=== PATIENT | female | born 1970 | race Caucasian/White ===

== ENCOUNTER 2019-10-23 14:21 | Emergency (ER) | payer BC ==
[2019-10-23 15:00] VITALS: BP 135/95; PULSE 68; TEMP 98.2; BMI 26.2
--- NOTE | 2019-10-23 15:02 | PDOC ---
History of Present Illness - General Chief Complaint: Pain Stated Complaint: RT LOWER GROIN PAIN X 2 MONTHS Time Seen by Provider: 10/23/19 14:40 History Source: Patient Exam Limitations: No Limitations - History of Present Illness Initial Comments: 49 yo F history lower abdominal pain for the past 2 months. She has an appointment with a GI in 1 month (delayed due to COVID pandemic), but states the pain was worse today and she could not wait. Denies N/V/D, constipation, fever, chills, dysuria. Pain is unrelenting, worse with walking. She has had a normal ultrasound in the past month, evaluated for the same pain. Past History - Medical History Allergies/Adverse Reactions: Allergies Allergy/AdvReac Type Severity Reaction Status Date / Time No Known Allergies Allergy Verified 10/23/19 14:22 Home Medications: Ambulatory Orders NK [No Known Home Medication] 10/23/19 Anemia: No Asthma: No Cancer: No Cardiac Disorders: No CVA: No COPD: No CHF: No Dementia: No Diabetes: No GI Disorders: No Disorders: No HTN: No Hypercholesterolemia: No Liver Disease: No Seizures: No Thyroid Disease: No - Surgical History Abdominal Surgery: No Appendectomy: No Cardiac Surgery: No Cholecystectomy: No Lung Surgery: No Neurologic Surgery: No Orthopedic Surgery: No - Psycho-Social/Smoking History Smoking History: Current every day smoker Have you smoked in the past 12 months: Yes Number of Cigarettes Smoked Daily: 2 Information on smoking cessation initiated: Yes - Substance Abuse Hx (Audit-C & DAST Scrn) How often the patient has a drink containing alcohol: Never Score: In Men: 4 or > Positive; In Women: 3 or > Positive: 0 Screen Result (Pos requires Nsg. Audit-10AR): Negative In the last yr the pt used illegal drug/Rx for NonMed reason: No Score: Yes response is considered Positive: 0 Screen Result (Positive result requires Nsg. DAST-10): Negative Review of Systems - Review of Systems Able to Perform ROS?: Yes Comments:: GENERAL/CONSTITUTIONAL: No fever or chills. No weakness. HEAD, EYES, EARS, NOSE AND THROAT: No change in vision. No ear pain or discharge. No sore throat. CARDIOVASCULAR: No chest pain or shortness of breath. RESPIRATORY: No cough, wheezing, or hemoptysis. GASTROINTESTINAL: No nausea, vomiting, diarrhea or constipation. +Abd pain GENITOURINARY: No dysuria, frequency, or change in urination. MUSCULOSKELETAL: No joint or muscle swelling or pain. No neck or back pain. SKIN: No rash. NEUROLOGIC: No headache, vertigo, loss of consciousness, or change in strength/sensation. ENDOCRINE: No increased thirst. No abnormal weight change. HEMATOLOGIC/LYMPHATIC: No anemia, easy bleeding, or history of blood clots. ALLERGIC/IMMUNOLOGIC: No hives or skin allergy. *Physical Exam - Vital Signs Last Vital Signs Temp Pulse Resp BP Pulse Ox 98.2 F 68 20 135/95 100 10/23/19 14:21 10/23/19 14:21 10/23/19 14:21 10/23/19 14:21 10/23/19 14:21 - Physical Exam GENERAL: Awake, alert, and fully oriented, in no acute distress HEAD: No signs of trauma EYES: PERRLA, EOMI, sclera anicteric, conjunctiva clear ENT: Auricles normal inspection, hearing grossly normal, nares patent, oropharynx clear without exudates. Moist mucosa NECK: Normal ROM, supple, no lymphadenopathy, JVD, or masses LUNGS: Breath sounds equal, clear to auscultation bilaterally. No wheezes, and no crackles HEART: Regular rate and rhythm, normal S1 and S2, no murmurs, rubs or gallops ABDOMEN: Soft, +moderate RLQ tenderness, normoactive bowel sounds. No guarding, no rebound. No masses EXTREMITIES: Normal range of motion, no edema. No clubbing or cyanosis. No cords, erythema, or tenderness NEUROLOGICAL: Cranial nerves II through XII grossly intact. Normal speech. +Slightly antalgic gait. Motor and sensation intact SKIN: Warm, dry, normal turgor, no rashes or lesions noted. Medical Decision Making - Medical Decision Making Appendicitis considered unlikely given the duration of symptoms, lack of fever, no change in appetite. Kidney stone possible, ruled out by CT in ED. She has already had ob/gyn eval. This may be something inflammatory given the findings of the CT. Infection considered unlikely, again, given duration of symptoms and lack of fever, chills, N/V/D. Will give her a list of GIs in our system in the hopes she can be seen earlier. Stable for DC home. Discharge - Discharge Information Problems reviewed: Yes Clinical Impression/Diagnosis: Abdominal pain Qualifiers: Abdominal location: right lower quadrant Qualified Code(s): R10.31 - Right lower quadrant pain Condition: Stable Disposition: HOME - Admission No - Follow up/Referral Referrals: Jasbir Falk MD [Staff Physician] - - Patient Discharge Instructions Patient Printed Discharge Instructions: DI for Abdominal Pain-Adult - Post Discharge Activity
== END 2019-10-23 17:39 | disposition home or self-care (01) ==
LOC: FER 14:21
DX: R10.9 Unspecified abdominal pain (principal)
CPT/HCPCS: 74176-TC; 81003; 84703; 99284-25

== ENCOUNTER 2019-11-27 11:42 | Day surgery (SDC) | payer BC ==
[2019-11-26 13:49] VITALS: BMI 26.9
[2019-11-27 12:09] VITALS: TEMP 98.2
[2019-11-27 15:43] VITALS: BP 114/72; PULSE 66
--- NOTE | 2019-12-01 17:05 | PATH ---
Surgical Pathology Report Patient Name: CLIFTON FERNANDEZ [facility]. Rec. #: [id number] /Age/Gender: 1970 (Age: 49) / F Account: [id number] Location: [facility] Taken: 11/27/2019 Received: 11/27/2019 Reported: 12/01/2019 Physicians: Lorraine Corea M.D. Specimen(s) Received A: BX RIGHT COLON B: BX TRANSVERSE COLON C: BX DESCENDING COLON Clinical History Rule out colitis Postoperative diagnosis: Hemorrhoids Final Diagnosis A. RIGHT COLON, BIOPSY: COLONIC MUCOSA SHOWING SMALL BENIGN/REACTIVE LYMPHOID AGGREGATE. B. TRANSVERSE COLON, BIOPSY: COLONIC MUCOSA SHOWING SMALL BENIGN/REACTIVE LYMPHOID AGGREGATE. C. DESCENDING COLON, BIOPSY: COLONIC MUCOSA SHOWING SMALL BENIGN/REACTIVE LYMPHOID AGGREGATE. Electronically Signed Ana Cooper M.D. Gross Description A. Received in formalin, labeled "right colon" is a wilson, irregular portion of soft tissue measuring 0.3 cm. in greatest dimension. The specimen is submitted in toto in one cassette. B. Received in formalin, labeled "transverse colon" is a wilson, irregular portion of soft tissue measuring 1.0 cm. in greatest dimension. The specimen is submitted in toto in one cassette. C. Received in formalin, labeled "descending colon" is a wilson, irregular portion of soft tissue measuring 0.4 cm. in greatest dimension. The specimen is submitted in toto in one cassette. /11/27/2019 saudi/11/27/2019
== END 2019-11-27 14:15 | disposition home or self-care (01) ==
LOC: FASU-ENDO 11:42
PROVIDERS: ATTEND Internal Medicine Gastroenterology
PROC: 0DBL8ZX Excision of Transverse Colon, Via Natural or Artificial Opening Endoscopic, Diagnostic (ICD-10-PCS; 2019-11-27)
PROC: 0DBM8ZX Excision of Descending Colon, Via Natural or Artificial Opening Endoscopic, Diagnostic (ICD-10-PCS; 2019-11-27)
PROC: 0DBK8ZX Excision of Ascending Colon, Via Natural or Artificial Opening Endoscopic, Diagnostic (ICD-10-PCS; principal; 2019-11-27 13:05)
DX: K63.89 Other specified diseases of intestine (principal); K64.1 Second degree hemorrhoids; R10.9 Unspecified abdominal pain
CPT/HCPCS: 84703; 88305-TC

== ENCOUNTER 2021-08-10 21:36 | Emergency (ER) | payer BC ==
[2021-08-10 21:49] VITALS: BP 122/74; PULSE 80; TEMP 97.8; BMI 27.6
[2021-08-10 22:35] LABS: HEMATOCRIT 42.5 % (32.4-45.2); HEMOGLOBIN 14.9 G/dL (10.7-15.3); MCHC 35.1 g/dl (32.0-36.0); MEAN CELL VOLUME 91.1 fl (80-96); MEAN PLT VOLUME 8.5 fl (7.5-11.1); PLATELET COUNT 231.8 10^3/uL (134-434); RBC 4.66 10^6/uL (3.60-5.2); RDW 14.2 % (11.6-15.6); WHITE BLOOD COUNT 11.3 10^3/uL (4.0-10.8)
[2021-08-10 22:50] LABS: PLATELET ESTIMATE ADEQUATE
[2021-08-10 22:55] LABS: ALBUMIN 3.9 g/dl (3.4-5.0); BILIRUBIN,TOTAL 0.6 mg/dl (0.2-1); CALCIUM 9.6 mg/dl (8.5-10); CREATININE 0.8 mg/dl (0.55-1.3); TOT PROT 6.6 g/dl (6.4-8.2)
== END 2021-08-10 23:12 | disposition home or self-care (01) ==
LOC: FER 21:36
DX: R00.2 Palpitations (principal)
CPT/HCPCS: 36415; 80053; 82550; 84484; 85025; 93005; 99284-25

== ENCOUNTER 2021-12-14 21:02 | Emergency (ER) | payer BC ==
[2021-12-14 21:19] VITALS: BP 121/80; PULSE 78; RESP 19; TEMP 97.9; BMI 27.2
[2021-12-14] MEDS ORDERED: METOCLOPRAMIDE HCL INJECTION 10 MG/2 ML VIAL IM ONE (23:18)
[2021-12-14] MEDS ORDERED: TETRACAINE 0.5% HCL 0.6ML DROPPER.BOTTLE OD ONE (23:30)
[2021-12-14] MEDS ORDERED: FLUORESCEIN NA 1 EA STRIP OD ONE (23:30)
[2021-12-14] MEDS ORDERED: FLUORESCEIN NA 1 EA STRIP ONE (23:34)
[2021-12-14] MEDS ORDERED: METOCLOPRAMIDE HCL INJECTION 10 MG/2 ML VIAL ONE (23:34)
[2021-12-14] MEDS ORDERED: TETRACAINE 0.5% OPHTH SOLN 2 ML BOTTLE ONE (23:34)
== END 2021-12-15 00:32 | disposition home or self-care (01) ==
LOC: JER 21:02
PROC: 3E033NZ Introduction of Analgesics, Hypnotics, Sedatives into Peripheral Vein, Percutaneous Approach (ICD-10-PCS; principal; 2021-12-14)
DX: H11.32 Conjunctival hemorrhage, left eye (principal)
CPT/HCPCS: 99283-25